=== PATIENT | female | born 1945 | race Caucasian/White ===

== ENCOUNTER 2016-09-28 10:09 | Day surgery (SDC) | payer MEDICARE ==
[2016-09-28] MEDS ORDERED: MIDAZOLAM HCL 2MG/2ML VIAL IV ONE (14:00)
[2016-09-28] MEDS ORDERED: PROPOFOL 10 MG/ML VIAL IV ONE (14:00)
[2016-09-28] MEDS ORDERED: LIDOCAINE 2% MDV (20MG/ML) 20ML VIAL IV ONE (14:00)
--- NOTE | 2016-10-03 11:22 | Operative Note ---
DATE OF SURGERY: 09/28/2016 OPERATION: ESOPHAGOGASTRODUODENOSCOPY. PREOPERATIVE DIAGNOSIS: Dysphagia and GERD. POSTOPERATIVE DIAGNOSIS: Normal EGD. PROCEDURE: After informed consent was obtained from the patient, she was placed in the left lateral decubitus position in the endoscopy suite, sedated and monitored by the department of anesthesia. Once sedated, a well-lubricated EEN187 gastroscope was placed in the posterior oropharynx and under direct visualization passed to the proximal esophagus. The endoscope was advanced through the proximal, mid, and distal esophagus. The GE junction and esophagus were unremarkable. The gastric body, antrum, pylorus, duodenal bulb and sweep were unremarkable. J-turn views of the proximal stomach were unrevealing. The endoscope was straightened and retracted from the patient with no new findings noted. She did have some desaturation and did receive some Ambu bag assisted ventilation as well as an oral airway. Her oxygen saturation promptly increased to greater than 90%. She will be taken to the recovery area and monitored. RECOMMENDATIONS: At this point I would suggest she continue her current medical program. I would be happy to see her in followup as needed. If she has recurrent dysphagia, I would suggest an esophagogram be performed. As always, thank you for allowing me to participate in the healthcare of your patients. ADDENDUM: I did recommend that she undergo colonoscopy, as she has not had this done before, but apparently she is refusing this. CC: CANDI Styles
== END 2016-09-28 11:46 | disposition home or self-care (01) ==
LOC: HOP 10:09
PROVIDERS: ATTEND Internal Medicine Gastroenterology
DX: R13.10 Dysphagia, unspecified (principal); K21.9 Gastro-esophageal reflux disease without esophagitis; E03.9 Hypothyroidism, unspecified

== ENCOUNTER 2019-05-02 11:15 | Emergency (ER) | payer MEDICARE ==
[2019-05-02] MEDS ORDERED: KETOROLAC 30 MG/ML VIAL IM ONE (11:29)
--- NOTE | 2019-05-02 11:49 | Emergency Department Record ---
History of Present Illness - General Chief complaint: Pain Stated complaint: HIP PAIN Time Seen by Provider: 05/02/19 11:26 Source: Patient Mode of Arrival: crutches Limitations: No limitations - History of Present Illness Initial comments: The patient is here due to R hip pain for a week. She denies any fall or trauma. The pain is over the side of the hip and does radiate to the back minimally. There is no pain going down the back of the leg and no leg numbness or weakness. The patient has a hx of "bursitis" with similar pain in the past. There is no hx of fever, chills, AP or dysuria. MD Complaint: Joint pain Onset/Timin -: Week(s) Location: Right, Other Severity scale (1-10): 10 Quality: Aching Improves with: Rest Worsens with: Walking, Weight bearing - Related Data Previous Rx's Medication Instructions Recorded Acetaminop W/ Codeine 300/30Mg 1 tab PO Q6H #12 tab 05/02/19 [Tylenol #3] Allergies Allergy/AdvReac Type Severity Reaction Status Date / Time hydrocodone Allergy Intermediate ITCHING Verified 05/02/19 11:23 Sulfa (Sulfonamide Allergy Unknown PT UNSURE Verified 05/02/19 11:23 Antibiotics) OF REACTION Travel Screening - Travel/Exposure Within Last 30 Days Have you traveled within the last 30 days?: No - Travel/Exposure Within Last Year Have you traveled outside the [place] in the last year?: No - Additonal Travel Details Have you been exposed to anyone with a communicable illness?: No - Travel Symptoms Symptom Screening: None Review of Systems Constitutional: Denies: Chills, Fever Eyes: Denies: Eye discharge ENT: Denies: Congestion Respiratory: Denies: Cough, Dyspnea Past Medical History - SOCIAL HISTORY Smoking Status: Former smoker Alcohol Use: None Drug Use: None - RESPIRATORY Hx Respiratory Disorders: No - CARDIOVASCULAR Hx Cardio Disorders: Yes Hx Hypertension: Yes Comment:: HIGH CHOLESTEROL - NEURO Hx Neuro Disorders: Yes Hx of Migraines: Yes - GI Hx GI Disorders: Yes Hx Reflux: Yes - Hx Genitourinary Disorders: Yes Hx Bladder Problem: Yes Hx Kidney Stones: Yes Hx UTI: Yes - ENDOCRINE Hx Endocrine Disorders: Yes Hx Thyroid Disease: Yes Comment:: OSCAR'S - MUSCULOSKELETAL Hx Musculoskeletal Disorders: No - PSYCH Hx Psych Problems: No - HEMATOLOGY/ONCOLOGY Hx Hematology/Oncology Disorders: No Family Medical History Any Significant Family History?: No Physical Exam - General General Appearance: Alert, Oriented x3, Cooperative, No acute distress - Head Head exam: Atraumatic, Normocephalic, Normal inspection - Eye Eye exam: Normal appearance, PERRL - Neck Neck exam: Normal inspection, Full ROM. negative: Tenderness - Respiratory Respiratory exam: Normal lung sounds bilaterally. negative: Respiratory distress - Cardiovascular Cardiovascular Exam: Regular rate, Normal rhythm, Normal heart sounds - GI/Abdominal GI/Abdominal exam: Soft, Normal bowel sounds. negative: Tenderness - Extremities Extremities exam: Normal inspection, Tenderness (There is tenderness to the R lateral hip diffusely.), Other (The lower extremities are NVI with normal pulses.). negative: Full ROM (There is decreased ROM of the L hip due to pain. ), Joint swelling - Back Back exam: Reports: Normal inspection. Denies: Paraspinal tenderness, Vertebral tenderness - Neurological Neurological exam: Alert, Normal gait, Oriented X3. negative: Abnormal gait, Altered, Motor sensory deficit Course Vital Signs 05/02/19 11:17 Temperature 98.0 F Pulse Rate 69 Respiratory 16 Rate Blood Pressure 144/85 Pulse Ox 100 - Reevaluation(s) Reevaluation #1: The patient is doing better after the Toradol. I did discuss the R hip arthritis with the patient and the need for F/U. She is up walking with her crutches without difficulty and is ready for home. 05/02/19 12:34 Medical Decision Making - Data Complexity MDM Data: X-Ray Ordered and/or Reviewed - Radiology Data Radiology results: Report reviewed (R hip: Mod to severe arthritis.) Disposition Disposition: Discharge Clinical Impression: Arthritis pain, hip Disposition: Home, Self-Care Condition: (2) Stable Instructions: Arthritis (ED) Additional Instructions: Please take your home Motrin for 3 days and use the Tylenol # 3 as directed. Please see your doctor for recheck next week. Please also see Dr. Dyer in the Specialty clinic next week as directed. Return to the ER for any worsening issues. Prescriptions: Acetaminop W/ Codeine 300/30Mg [Tylenol #3] 1 tab PO Q6H #12 tab Referrals: [facility] [Provider Group] Forms: Patient Portal Access Time of Disposition: 12:41 Quality - Quality Measures Quality Measures: N/A - Blood Pressure Screening View Details: Yes Does Patient Have Any of the Following: No Blood Pressure Classification: Pre-Hypertensive BP Reading Systolic Measurement: 144 Diastolic Measurement: 85 Screening for High Blood Pressure: < Pre-Hypertensive BP, F/U Documented > [[id number]] Pre-Hypertensive Follow-up Interventions: Referral to alternative/primary care provider.
--- NOTE | 2019-05-02 12:30 | RADIOLOGY REPORT ---
EXAMINATION: Right Hip Minimum Two Views EXAM DATE: 05/02/2019 12:02 PM TECHNIQUE: AP pelvis and right frog leg lateral hip views INDICATION: pain COMPARISON: None ENCOUNTER: Initial FINDINGS: Moderate degenerative changes with medial joint space narrowing and moderate marginal spurring. Mild subarticular sclerosis. No acute fracture or dislocation. No pelvic fracture or diastasis. No disloca tion. IMPRESSION: Moderate degenerative changes of the right hip. Dictated by: Mehul Sánchez DO on 05/02/2019 12:24 PM. .
== END 2019-05-02 12:50 | disposition home or self-care (01) ==
LOC: ER 11:15
DX: M16.11 Unilateral primary osteoarthritis, right hip (principal); I10 Essential (primary) hypertension; Z87.891 Personal history of nicotine dependence
CPT/HCPCS: 99284 ×2; 96372; 73502; J1885